=== PATIENT | female | born 1960 | race Caucasian/White ===

== ENCOUNTER 2025-06-08 10:16 | Outpatient (CLI) | payer MEDICARE | END 2025-06-08 10:17 | disposition home or self-care (01) | LOC: SCSMRI 10:16 | PROVIDERS: ATTEND Orthopaedic Surgery | DX: M23.92 Unspecified internal derangement of left knee (principal); S83.242A Other tear of medial meniscus, current injury, left knee, initial encounter ==

== ENCOUNTER 2025-07-20 06:44 | Day surgery (SDC) | payer MEDICARE ==
[2025-07-16 11:30] VITALS: BMI 30.2
[2025-07-20] MEDS ORDERED: CEFAZOLIN 2 GM VIAL ONE (07:50)
[2025-07-20] MEDS ORDERED: Ketorolac Tromethamine 30 MG (1 mL) VIAL ONE (09:09)
[2025-07-20] MEDS ORDERED: Lidocaine 1% PF 5 ML VIAL ONE (09:09)
[2025-07-20] MEDS ORDERED: Ondansetron PF 4 MG/2 ML Vial ONE (09:09)
[2025-07-20] MEDS ORDERED: PROPOFOL 200 MG/20 ML VIAL ONE (09:18)
[2025-07-20] MEDS ORDERED: fentaNYL PF 100 MCG/2 ML SYRINGE ONE (09:31)
== END 2025-07-20 12:55 | disposition home or self-care (01) ==
LOC: SDC 06:44
PROVIDERS: ATTEND Orthopaedic Surgery
PROC: 0SBD4ZZ Excision of Left Knee Joint, Percutaneous Endoscopic Approach (ICD-10-PCS; principal; 2025-07-20)
PROC: 0SBD4ZZ Excision of Left Knee Joint, Percutaneous Endoscopic Approach (ICD-10-PCS; 2025-07-20)
DX: S83.242A Other tear of medial meniscus, current injury, left knee, initial encounter (principal); M17.12 Unilateral primary osteoarthritis, left knee; X58.XXXA Exposure to other specified factors, initial encounter
CPT/HCPCS: 29880; 64454; J0665; J1885; J2405; J3010; J0166; J2250; J2704